=== PATIENT | female | born 1965 ===

== ENCOUNTER 2016-05-30 08:51 | Day surgery (SDC) | payer OTHER ==
[2016-05-30 09:28] VITALS: BMI 29.6
[2016-05-30] MEDS ORDERED: Propofol 10 mg/ml Inj (20 ML) ONE (12:07)
[2016-05-30 12:36] VITALS: TEMP 97
[2016-05-30 12:50] VITALS: RESP 12; O2SAT 98
[2016-05-30 13:07] VITALS: BP 98/60; PULSE 57
== END 2016-05-30 13:27 | disposition home or self-care (01) ==
LOC: C.ENDO 08:51
PROVIDERS: ATTEND Internal Medicine Gastroenterology
DX: K59.00 Constipation, unspecified (principal); R10.13 Epigastric pain; K92.1 Melena; K64.8 Other hemorrhoids; K29.70 Gastritis, unspecified, without bleeding
CPT/HCPCS: 43239; 45378; 88305; J2704

== ENCOUNTER 2018-06-07 07:53 | Day surgery (SDC) | payer OTHER ==
[2018-06-07 08:15] VITALS: BMI 29.2
[2018-06-07 08:22] VITALS: TEMP 97.3
--- NOTE | 2018-06-07 10:01 | CP.SDSHP ---
Same Day Surgery H & P - History Proposed Procedure: COLONSCOPY Pre-Op Diagnosis: SEE NOTES - Previous Medical/Surgical History Cardiac: Hypertension Endocrine/Metabolic: Other Misc: Other Pain: 4.Moderate Pain - Allergies Allergies: Allergies No Known Allergies Allergy (Verified 05/30/16 09:26) - Physical Exam General Appearance: N Vital Signs: Vital Signs 06/07/18 08:15 Temperature 97.3 F L Pulse Rate 76 Respiratory 18 Rate Blood Pressure 108/60 O2 Sat by Pulse 100 Oximetry Mental Status: Alert & Oriented x3 Neuro: WNL Heart: Other Lungs: WNL GI: Other - {Optional Preform as Required} Breast: WNL Abdomen: Other Rectal: Other Integument: WNL : WNL Ortho: WNL ENT: WNL - Impression Pt. Evaluated Today:Candidate for Anesthesia & Procedure: Yes - Date & Time Time: 10:01 Short Stay Discharge - Short Stay Discharge Admitting Diagnosis/Reason for Visit: CHANGE IN BOWEL HABIT Disposition: HOME/ ROUTINE
[2018-06-07] MEDS ORDERED: Propofol 10 mg/ml Inj (20 ML) ONE (10:05)
[2018-06-07] MEDS: Belladonna-Phenobarbital PO ONE ×2 (10:35→11:35)
[2018-06-07] MEDS ORDERED: Lidocaine Hydrochloride 5 ML INJ ONE (10:40)
[2018-06-07 10:56] VITALS: PULSE 64; RESP 14; O2SAT 99
[2018-06-07 12:43] VITALS: BP 111/68
== END 2018-06-07 12:35 | disposition home or self-care (01) ==
LOC: C.ENDO 07:53
PROVIDERS: ATTEND Specialist
DX: R19.4 Change in bowel habit (principal); K64.8 Other hemorrhoids
CPT/HCPCS: 45380; 88305; J2704

== ENCOUNTER 2018-06-26 07:25 | Day surgery (SDC) | payer OTHER ==
[2018-06-26 08:33] VITALS: BMI 29.2
[2018-06-26] MEDS ORDERED: Propofol 10 mg/ml Inj (20 ML) ONE (09:21)
--- NOTE | 2018-06-26 09:21 | CP.SDSHP ---
Same Day Surgery H & P - History Proposed Procedure: EGD Pre-Op Diagnosis: SEE NOTES - Previous Medical/Surgical History Cardiac: Hypertension Endocrine/Metabolic: Other Misc: Other Pain: 4.Moderate Pain - Allergies Allergies: Allergies No Known Allergies Allergy (Verified 05/30/16 09:26) - Physical Exam General Appearance: N Vital Signs: Vital Signs 06/26/18 08:00 Temperature 97.8 F Pulse Rate 60 Respiratory 19 Rate Blood Pressure 107/73 O2 Sat by Pulse 100 Oximetry Mental Status: Alert & Oriented x3 Neuro: WNL Heart: Other Lungs: WNL GI: Other - {Optional Preform as Required} Breast: WNL Abdomen: Other Rectal: Other Integument: WNL : WNL Ortho: WNL ENT: WNL - Impression Pt. Evaluated Today:Candidate for Anesthesia & Procedure: Yes - Date & Time Time: 09:20 Short Stay Discharge - Short Stay Discharge Admitting Diagnosis/Reason for Visit: DYSPEPSIA Disposition: HOME/ ROUTINE
[2018-06-26] MEDS ORDERED: Belladonna-Phenobarbital PO ONE (09:45)
[2018-06-26 10:19] VITALS: TEMP 97
[2018-06-26 10:21] VITALS: RESP 20
[2018-06-26 10:29] VITALS: BP 115/70; PULSE 78; O2SAT 99
== END 2018-06-26 12:30 | disposition home or self-care (01) ==
LOC: C.ENDO 07:25
PROVIDERS: ATTEND Specialist
DX: K29.80 Duodenitis without bleeding (principal); K44.9 Diaphragmatic hernia without obstruction or gangrene; K29.70 Gastritis, unspecified, without bleeding; K30 Functional dyspepsia; I10 Essential (primary) hypertension
CPT/HCPCS: 43239; 84703; 88305; J2704